=== PATIENT | female | born 1960 | race Caucasian/White ===

== ENCOUNTER → 2019-09-14 | Day surgery (SDC) | payer BC ==
[~2019-09-14] MED LIST: Ketamine 200 MG/20 ML MDV IV ONE; Propofol 200 MG/20 ML SDV IV ONE
[2019-09-14] MEDS: Lactated Ringers 1,000 ML IV SCH (08:05)
[2019-09-14 09:19] VITALS: BP 95/47; PULSE 57
--- NOTE | 2019-09-14 15:25 | OR ---
DATE OF OPERATION: 09/14/2019 PREOPERATIVE DIAGNOSIS: FAMILY HISTORY OF COLON CANCER. POSTOPERATIVE DIAGNOSIS: FAMILY HISTORY OF COLON CANCER. SURGEON: Leandro Muller MD PROCEDURE: SCREENING COLONOSCOPY. ANESTHESIA: MAC. COMPLICATIONS: None. SPECIMEN: None. FINDINGS: 1. Normal full-length colonoscopy. 2. Poor bowel prep. RECOMMENDATIONS: Followup colonoscopy every 5 years. INDICATIONS: The patient's mother has history of colon cancer. She is due for a 5-year surveillance scope. DESCRIPTION OF PROCEDURE: The patient was prepped and draped, placed in the left lateral decubitus position. A lubricated Olympus colonoscope was inserted and ultimately and easily advanced to the cecum. Unfortunately, the patient had multiple skip areas of volume of stool which was particulate, could not be suctioned. The cecum area of the transverse colon, a few areas in the sigmoid and the rectal vault all had a lot of stool which could not be mobilized. Upon withdrawal, throughout the entire length of the colon, I could find no obvious signs of polyps, masses, ulceration, or bleeding sites. No vascular abnormalities or signs of colitis. There were no diverticula as stated earlier. Smaller lesions certainly could have been missed as there were areas that just could not be suctioned as our scope kept getting plugged even with copious irrigation. The rectal vault was benign. I was able to retroflex and look at the perianal region which was unremarkable. Air was suctioned, the scope removed without complication. NIKI/UMBERTO /[id number]
== END ==
LOC: CC.SDS 07:44
PROVIDERS: ATTEND Family Medicine
DX: Z12.11 Encounter for screening for malignant neoplasm of colon (principal); R53.83 Other fatigue; Q89.9 Congenital malformation, unspecified; Z80.0 Family history of malignant neoplasm of digestive organs
CPT/HCPCS: G0121; J2704; J7120